=== PATIENT | male | born 1955 | race Caucasian/White ===

== ENCOUNTER 2021-12-04 19:11 | Inpatient (IN) ==
[2021-12-04] MEDS ORDERED: Iopamidol - 370 500 ML MLS IVP ONE (21:28)
[2021-12-04 22:00] LABS: Basophils % 0.6 %; Eosinophils # 0.6 K/mcL (0.0-0.6); Eosinophils % 8.9 %; Hematocrit 44.7 % (37.5-50.1); Hemoglobin 14.6 g/dL (12.9-16.9); Immature Granulocytes % 0.2 % (0-4); Lymphocytes # 2.9 K/mcL (0.6-4.6); Lymphocytes % 46.6 %; Mean Corpuscular HGB Conc 32.7 g/dL (31.6-35.5); Mean Corpuscular Hemoglobin 32.6 pg (28.0-33.3); Mean Corpuscular Volume 99.8 fL (83.0-100.0); Monocytes # 0.6 K/mcL (0.0-1.3); Monocytes % 10.2 %; Neutrophils # 2.1 K/mcL (1.6-8.9); Platelet Count 198 K/mcL (140-400); Red Blood Count 4.48 M/mcL (4.19-5.50); Red Cell Distribution Width 13.2 % (11.5-14.5); Segmented Neutrophils % 33.5 %; White Blood Count 6.3 K/mcL (4.3-11.1)
[2021-12-04 22:08] LABS: Prothrombin Time 11.6 Seconds (9.4-12.1)
[2021-12-04 22:17] LABS: BUN/Creatinine Ratio 13 (6-26); Blood Urea Nitrogen 14 mg/dL (8-23); Calcium 9.1 mg/dL (8.6-10.3); Carbon Dioxide 30 mEq/L (23-29); Chloride 104 mEq/L (98-107); Glucose 104 mg/dL (70-105); Osmolality,Calculated 285 (280-300); Potassium 4.3 mEq/L (3.5-5.1); Sodium 137 mEq/L (136-145); eGFR For African Americans > 60 (> 60); eGFR For Non-African Americans > 60 (> 60)
[2021-12-04 22:20] LABS: Troponin I 0.06 ng/mL (< 0.04)
[2021-12-04 22:39] LABS: Influenza A PCR Negative (Negative); Influenza B PCR Negative (Negative); Resp. Syncytial Virus PCR Negative (Negative)
[2021-12-04 22:50] LABS: SARS-CoV-2 by PCR (In House) Negative (Negative)
[2021-12-04] MEDS ORDERED: Aspirin 325 MG TABLET PO ONE (23:51)
[2021-12-04] MEDS ORDERED: Nitroglycerin 0.4 MG TAB.SUBL SL PRN (23:51)
[2021-12-05] MEDS ORDERED: Melatonin 3 MG TABLET PO PRN (01:03)
[2021-12-05] MEDS ORDERED: Ondansetron ODT 4 MG TAB.RAPDIS SL PRN (01:03)
[2021-12-05] MEDS ORDERED: Naloxone 0.4 MG/ML INJ IVP PRN (01:03)
[2021-12-05] MEDS ORDERED: Perflutren Lipid Microsphere 1.3 ML in 0.9 % Sodium Chloride 8.7 ML IVP PRN ×2 (02:49→10:10)
[2021-12-05 02:57] LABS: Thyroid Stimulating Hormone 2.752 mcIU/mL (0.340-5.600)
[2021-12-05 03:22] LABS: Chol/HDL Ratio 2.9 (0-4.9)
[2021-12-05 05:45] LABS: Basophils # 0.1 K/mcL (0.0-0.2); Basophils % 0.9 %; Eosinophils # 0.5 K/mcL (0.0-0.6); Hematocrit 42.3 % (37.5-50.1); Hemoglobin 13.9 g/dL (12.9-16.9); Immature Granulocytes % 0.3 % (0-4); Lymphocytes # 2.2 K/mcL (0.6-4.6); Lymphocytes % 35.2 %; Mean Corpuscular HGB Conc 32.9 g/dL (31.6-35.5); Mean Corpuscular Hemoglobin 32.3 pg (28.0-33.3); Mean Corpuscular Volume 98.1 fL (83.0-100.0); Mean Platelet Volume 9.1 fL (9.4-12.4); Monocytes # 0.6 K/mcL (0.0-1.3); Neutrophils # 2.9 K/mcL (1.6-8.9); Platelet Count 192 K/mcL (140-400); Red Blood Count 4.31 M/mcL (4.19-5.50); Red Cell Distribution Width 13.1 % (11.5-14.5); Segmented Neutrophils % 45.6 %; White Blood Count 6.4 K/mcL (4.3-11.1)
[2021-12-05] MEDS ORDERED: Albuterol 2.5 MG/3 ML NEBULIZER IH PRN (05:47)
[2021-12-05 05:55] LABS: Estimated Average Glucose 140 mg/dl; Hemoglobin A1C 6.5 %
[2021-12-05] MEDS: Aspirin 81 MG TAB.CHEW PO SCH (08:52)
[2021-12-05] MEDS ORDERED: Metoprolol XL (24 HR) Succ 25 MG TAB.ER.24H PO SCH (10:00)
[2021-12-05] MEDS ORDERED: *HR* Heparin 5,000 UNIT/ML VIAL IVP PRN ×2 (10:13)
[2021-12-05] MEDS ORDERED: *HR* Heparin 5,000 UNIT/ML VIAL IVP ONE (10:13)
[2021-12-05] MEDS: Tiotropium 10 INH DOSE IH SCH (10:16)
[2021-12-05] MEDS: Heparin 25,000UNIT/250ML 1/2NS 25,000 UNIT/250 ML IV.SOLN IVC SCH (11:07)
[2021-12-05 11:47] LABS: Hematocrit 43.7 % (37.5-50.1); Hemoglobin 14.4 g/dL (12.9-16.9); Mean Corpuscular Hemoglobin 31.9 pg (28.0-33.3); Mean Corpuscular Volume 96.7 fL (83.0-100.0); Mean Platelet Volume 9.3 fL (9.4-12.4); Platelet Count 192 K/mcL (140-400); Red Blood Count 4.52 M/mcL (4.19-5.50); Red Cell Distribution Width 13.1 % (11.5-14.5); White Blood Count 6.4 K/mcL (4.3-11.1)
[2021-12-05 11:56] LABS: Heparin anti-factor XA UFH 0.74 IU/mL (0.30-0.70); Prothrombin Time 11.2 Seconds (9.4-12.1)
[2021-12-05] MEDS ORDERED: Nitroglycerin 0.4 MG TAB.SUBL SL PRN (14:32)
[2021-12-05] MEDS ORDERED: Baclofen 10 MG TABLET PO PRN (14:32)
[2021-12-05] MEDS ORDERED: *HR* OxyCODONE/APAP 10/325 TABLET PO PRN (14:32)
[2021-12-05] MEDS ORDERED: Ipratropium/Albuterol Neb 3 ML IH PRN (14:32)
[2021-12-05] MEDS ORDERED: hydrOXYzine pamoate 25 MG CAPSULE PO PRN (14:54)
[2021-12-06] MEDS: Tiotropium 10 INH DOSE IH SCH (07:25)
[2021-12-06] MEDS ORDERED: *HR* Propofol 200 MG/20 ML VIAL IVP ONE (08:35)
[2021-12-06] MEDS ORDERED: *HR* FentaNYL (PF) 100 MCG/2 ML VIAL ONE (08:35)
[2021-12-06] MEDS ORDERED: Lidocaine HCL 4 ML Topical Solution (Laryng-O-Jet Kit Sterile Pak) TP ONE (08:36)
[2021-12-06] MEDS ORDERED: Ondansetron 4 MG/2 ML VIAL IVP PRN (09:37)
[2021-12-06] MEDS ORDERED: Albuterol 2.5 MG/3 ML NEBULIZER IH PRN (09:37)
[2021-12-06] MEDS ORDERED: Lidocaine -MPF 2% 5 ML VIAL ONE (10:42)
[2021-12-06] MEDS ORDERED: *HR* Rocuronium Bromide 50 MG/5 ML VIAL ONE (10:42)
[2021-12-06] MEDS ORDERED: Ondansetron 4 MG/2 ML VIAL ONE (10:42)
[2021-12-06] MEDS: Isosorbide MONOnitrate (24 HR) 60 MG TAB.ER.24H PO SCH (12:45)
[2021-12-06] MEDS: amLODIPine 5 MG TABLET PO SCH (12:45)
[2021-12-06] MEDS: Aspirin 81 MG TAB.CHEW PO SCH (12:46)
[2021-12-06] MEDS: Nicotine 21 MG PATCH.TD24 TD SCH (12:46)
[2021-12-06] MEDS: Cholecalciferol (D-3) 1,000 UNIT (25MCG) TABLET PO SCH (12:46)
[2021-12-06] MEDS ORDERED: D5% in Water 1,000 ML IVC PRN (13:29)
[2021-12-06] MEDS ORDERED: Dextrose Gel 15 GM/37.5 ML TUBE PO PRN ×2 (13:29)
[2021-12-06] MEDS ORDERED: *HR* Dextrose 50 % in Water (Syg) 50 ML SYRINGE IVP PRN (13:29)
[2021-12-07] MEDS: Heparin 25,000UNIT/250ML 1/2NS 25,000 UNIT/250 ML IV.SOLN IVC SCH (03:16)
[2021-12-07 05:55] LABS: Basophils % 0.1 %; Hematocrit 39.9 % (37.5-50.1); Hemoglobin 13.2 g/dL (12.9-16.9); Immature Granulocytes % 0.5 % (0-4); Lymphocytes # 1.7 K/mcL (0.6-4.6); Lymphocytes % 13.6 %; Mean Corpuscular HGB Conc 33.1 g/dL (31.6-35.5); Mean Corpuscular Hemoglobin 32.6 pg (28.0-33.3); Mean Corpuscular Volume 98.5 fL (83.0-100.0); Mean Platelet Volume 9.6 fL (9.4-12.4); Monocytes # 0.9 K/mcL (0.0-1.3); Monocytes % 7.3 %; Neutrophils # 9.5 K/mcL (1.6-8.9); Platelet Count 207 K/mcL (140-400); Red Blood Count 4.05 M/mcL (4.19-5.50); Red Cell Distribution Width 12.8 % (11.5-14.5); Segmented Neutrophils % 78.5 %
[2021-12-07 06:21] LABS: BUN/Creatinine Ratio 26 (6-26); Blood Urea Nitrogen 23 mg/dL (8-23); Carbon Dioxide 25 mEq/L (23-29); Chloride 106 mEq/L (98-107); Glucose 137 mg/dL (70-105); Osmolality,Calculated 290 (280-300); Potassium 4.3 mEq/L (3.5-5.1); Sodium 137 mEq/L (136-145); eGFR For African Americans > 60 (> 60); eGFR For Non-African Americans > 60 (> 60)
[2021-12-07 06:44] LABS: White Blood Count 12.1 K/mcL (4.3-11.1)
[2021-12-07] MEDS: amLODIPine 5 MG TABLET PO SCH (08:32)
[2021-12-07] MEDS: Isosorbide MONOnitrate (24 HR) 60 MG TAB.ER.24H PO SCH (08:32)
[2021-12-07] MEDS: Aspirin 81 MG TAB.CHEW PO SCH (08:32)
[2021-12-07] MEDS: Cholecalciferol (D-3) 1,000 UNIT (25MCG) TABLET PO SCH (08:32)
[2021-12-07] MEDS: Nicotine 21 MG PATCH.TD24 TD SCH (08:33)
[2021-12-07 09:42] VITALS: TEMP 97.9
[2021-12-07] MEDS: Tiotropium 10 INH DOSE IH SCH (09:50)
[2021-12-07] MEDS ORDERED: *HR* FentaNYL (PF) 100 MCG/2 ML VIAL ONE (10:14)
[2021-12-07] MEDS ORDERED: 0.9 % Sodium Chloride 2,000 ML ONE (10:14)
[2021-12-07] MEDS ORDERED: *HR* Midazolam HCl 2 MG/2 ML VIAL ONE (10:14)
[2021-12-07] MEDS ORDERED: Iopamidol - 370 200 ML INFUS..BTL ONE (10:15)
[2021-12-07] MEDS ORDERED: Heparin 1,000 UNITS/500 mL 500 ML ONE (10:15)
[2021-12-07] MEDS ORDERED: Nitroglycerin 1,000 MCG/5 ML VIAL IV ONE (10:15)
[2021-12-07] MEDS ORDERED: *HR* Heparin 10,000 UNIT/10 ML VIAL ONE ×2 (10:15→10:28)
[2021-12-07 12:06] LABS: BUN/Creatinine Ratio 15 (6-26); Blood Urea Nitrogen 15 mg/dL (8-23); Calcium 8.8 mg/dL (8.6-10.3); Carbon Dioxide 21 mEq/L (23-29); Chloride 104 mEq/L (98-107); Glucose 91 mg/dL (70-105); Osmolality,Calculated 286 (280-300); Potassium 4.7 mEq/L (3.5-5.1); Sodium 138 mEq/L (136-145); eGFR For African Americans > 60 (> 60); eGFR For Non-African Americans > 60 (> 60)
[2021-12-07 12:17] VITALS: PULSE 66
[2021-12-07 14:18] VITALS: BP 108/72; O2SAT 98
== END 2021-12-07 14:35 | disposition home or self-care (01) | DRG 204 ==
LOC: EMEROOARM 19:11 → 2ANU 19:11
PROVIDERS: ADMIT Family Medicine; ATTEND Family Medicine